=== PATIENT | male | born 1980 | race African-American/Black ===

== ENCOUNTER 2022-08-25 21:55 | Emergency (ER) | payer SELFPAY ==
[~2022-08-25] VITALS: Ht 180.3 cm; Wt 94.3 kg
[2022-08-25 22:11] VITALS: BP 185/122; PULSE 84; RESP 16; TEMP 98.5; O2SAT 99
[2022-08-25] MEDS ORDERED: IBUPROFEN 600MG TABLET PO STA (23:33)
[2022-08-26] MEDS ORDERED: D-ME473S50 PO (01:25)
[2022-08-26] MEDS ORDERED: NAPR-681 PO (01:25)
== END 2022-08-26 02:00 | disposition home or self-care (01) ==
LOC: ER 21:55
DX: B33.8 Other specified viral diseases (principal); J02.9 Acute pharyngitis, unspecified; R50.9 Fever, unspecified; Z20.822 Contact with and (suspected) exposure to COVID-19
CPT/HCPCS: 99283; 87426; 87430; 87070; C9803